=== PATIENT | male | born 1995 | race Caucasian/White ===

== ENCOUNTER 2017-02-25 08:16 | Emergency (ER) | payer SELFPAY ==
[2017-02-25 08:19] VITALS: BP 130/78; PULSE 83; RESP 18; TEMP 98.7; O2SAT 96
--- NOTE | 2017-02-25 09:00 | PD ---
HPI Chief Complaint: Pain: Acute or Chronic Time Seen by Provider: 08:56 Travel History International Travel<30 days: No Contact w/Intl Traveler<30days: No Traveled to known affect area: No History of Present Illness HPI 21-year-old male here for evaluation of left knee pain. He reports that yesterday evening he was in bed and he turned his body in order to plug his cell phone into the seismograph observer. He felt a pain in his left knee. He reports that the pain is in the suprapatellar region, aching pain, reproduced with flexion of the knee. He reports that he had a similar pain 2 years ago after playing soccer. He reports that he had x-ray and MRI of the knee at that time and they revealed no structural abnormalities and eventually the pain went away. He denies any numbness or tingling or weakness. He has no other complaints at this time. History Social History Alcohol Use: No Tobacco Use: No Allergies-Medications (Allergen,Severity, Reaction): Coded Allergies: No Known Allergies (Unverified , 02/25/17) Review of Systems General / Constitutional: No: Fever Musculoskeletal: Positive: Pain, Other (positive for pain with range of motion) Skin: Positive Other (denies bruising or open wounds) Physical Exam Narrative GENERAL: Well-developed well-nourished male in no acute distress SKIN: Warm and dry. CARDIOVASCULAR: Regular rate and rhythm. No murmur appreciated. RESPIRATORY: No accessory muscle use. Clear to auscultation. Breath sounds equal bilaterally. MUSCULOSKELETAL: No obvious deformities. No joint effusion. There is no tenderness to palpation to the left knee joint. The patient has pain with flexion of the left knee at approximately 90 angle. There is no obvious laxity on anterior or posterior stress. NEUROLOGICAL: Awake and alert. No obvious cranial nerve deficits. Motor grossly within normal limits. Normal speech. Data Data Last Documented VS Vital Signs Date Time Temp Pulse Resp B/P (MAP) Pulse Ox O2 Delivery O2 Flow Rate FiO2 02/25/17 08:19 98.7 83 18 130/78 (95) 96 Room Air [facility] Medical Screen Exam Complete: Yes Emergency Medical Condition: No Narrative Course The patient appears to have strained his left knee yesterday evening and there is no evidence of bony abnormality without warrant emergent imaging. At this point in time the patient is stable for outpatient follow-up with primary care. A medical screening exam was performed: At the time of evaluation the presenting medical condition was determined not to be of an emergent nature. The patient was given the option of receiving additional care, but declined. Patient was given options for additional community resources from which to obtain care. The Patient Has Been advised to seek medical attention for their presenting complaint. The patient has been advised to return to the ER at any time if an emergent condition develops. Primary Impression: Encounter for medical screening examination Carter Hernández Feb 25, 2017 09:00
== END 2017-02-25 08:55 | disposition left against medical advice (07) ==
LOC: NEPD 08:16
DX: M25.562 Pain in left knee (principal)
CPT/HCPCS: 99281